=== PATIENT | male | born 1955 | race Caucasian/White ===

== ENCOUNTER 2018-01-24 23:45 | Emergency (ER) | payer OTHER ==
[2018-01-24] MEDS ORDERED: NITROGLYCERIN 0.4 MG TAB SL ONE (23:49)
[2018-01-24] MEDS ORDERED: ASPIRIN 81 MG CHEWABLE CTB ONE (23:49)
[2018-01-24] MEDS ORDERED: ASPIRIN 81 MG CHEWABLE CTB PO STA (23:51)
[2018-01-24] MEDS ORDERED: SODIUM CHLORIDE 0.9% FLUSH 10 ML SOL IV PRN (23:51)
[2018-01-24] MEDS: NITROGLYCERIN 0.4 MG TAB SL PRN ×2 (23:52→23:57)
[2018-01-25] MEDS: NITROGLYCERIN 0.4 MG TAB SL PRN (00:02)
[2018-01-25 00:06] LABS: BASOPHILS % (AUTO) 1 % (0-3); EOSINOPHILS % (AUTO) 4 % (0-9); HEMATOCRIT 42 % (39-53); HEMOGLOBIN 13.3 gm/dl (13.5-17.7); LYMPHOCYTES % (AUTO) 34.8 % (10-50); MEAN CORPUSCULAR HEMOGLOBIN 26.9 pg (27.0-32.0); MEAN CORPUSCULAR HGB CONC 31.6 gm/dl (32.0-36.0); MEAN CORPUSCULAR VOLUME 85 fL (80-100); MONOCYTES % (AUTO) 9.7 % (0-12); NEUTROPHILS % (AUTO) 50.3 % (37-80)
[2018-01-25 00:09] VITALS: TEMP 98
[2018-01-25 00:19] LABS: BLOOD UREA NITROGEN 17 mg/dl (7-18); CALCIUM 8.8 mg/dl (8.5-10.1); CARBON DIOXIDE 27.6 mEq/L (21-32); CHLORIDE 101 mMol/L (98-107); CREATINE KINASE 109 U/L (39-308); CREATININE 1.13 mg/dl (0.80-1.30); GLUCOSE 141 mg/dl (74-106); POTASSIUM 3.4 mMol/L (3.5-5.1); SODIUM 137 mMol/L (136-145); TROP I < 0.017 ng/ml (0.000-0.056)
[2018-01-25] MEDS ORDERED: ACETAMI/HYDROCO 325/10 TAB PO PRN (00:38)
[2018-01-25 02:38] VITALS: BP 117/69; PULSE 64; RESP 18; O2SAT 96
== END 2018-01-25 03:30 | disposition home or self-care (01) ==
LOC: ED 23:45
DX: R07.9 Chest pain, unspecified (principal); R06.02 Shortness of breath; R11.0 Nausea; I10 Essential (primary) hypertension
CPT/HCPCS: 36415; 71045; 80048; 82550; 84484; 85025; 93005; 99284; 99285; A9270-GY